=== PATIENT | female | born 1955 | race Caucasian/White ===

== ENCOUNTER → 2024-10-05 | Outpatient (CLI) | payer MEDICARE, OTHER, SELFPAY ==
--- NOTE | 2024-10-05 14:26 | XR_ITS ---
Examination: Abdomen AP single view Technique: AP portable supine abdomen, single view Exam date and time: October 05, 2024 1434 hours INDICATIONS: History kidney stones FINDINGS: Moderate stool throughout the colon including overlying the kidneys No renal or ureteral calculi visible Severe osteopenia IMPRESSION: No renal or ureteral calculi depicted
== END | disposition home or self-care (01) ==
PROVIDERS: PCP Family Medicine; Referring Provider Urology; Visit Provider Urology
DX: N20.0 Calculus of kidney (principal)
CPT/HCPCS: 74018

== ENCOUNTER → 2024-12-06 | Outpatient (CLI) | payer MEDICARE, OTHER, SELFPAY ==
--- NOTE | 2024-12-06 | XR_ITS ---
Examination: Abdomen AP single view Technique: AP portable supine abdomen, single view Exam date and time: December 06, 2024 1138 hrs. Indications: Abdominal pain this week Findings: Nonobstructive bowel gas pattern Surgical clips upper right abdomen Mild narrowing hip joints No free air Impression: Nonobstructive bowel gas pattern
== END | disposition home or self-care (01) ==
LOC: CDIM 11:20
PROVIDERS: PCP Family Medicine; Referring Provider Urology; Visit Provider Urology
DX: R10.9 Unspecified abdominal pain (principal)
CPT/HCPCS: 74018